=== PATIENT | female | born 1995 | race Hispanic/Latino ===

== ENCOUNTER 2018-07-16 10:23 | Emergency (ER) | payer OTHER ==
[2018-07-16 10:40] VITALS: BP 128/79
[2018-07-16] MEDS ORDERED: IBUPROFEN PO ONE (11:43)
[2018-07-16] MEDS ORDERED: CLEOCIN PO ONE (11:43)
--- NOTE | 2018-07-16 11:48 | Emergency Department Report ---
Abscess Boil HPI - HPI Chief Complaint: Skin/Abscess/Foreign Body Stated Complaint: BUTT CHEEK INFECTED Time Seen by Provider: 07/16/18 11:42 Duration: 2 Days Location: Other (buttock left) History: Yes Pain, Yes Previous History, Yes Insect Bite (unsure), No Fever, No Purulent Drainage, No Numbness, No Foreign Body Home Medications: Previous Rx's Medication Instructions Recorded Last Taken Type Clindamycin [Clindamycin CAP] 300 mg PO BID #20 capsule 07/16/18 Unknown Rx Ibuprofen [Motrin 800 MG tab] 800 mg PO TID #20 tablet 07/16/18 Unknown Rx Allergies/Adverse Reactions: Allergies Allergy/AdvReac Type Severity Reaction Status Date / Time No Known Allergies Allergy Unverified 07/16/18 10:34 ED Review of Systems ROS: Stated complaint: BUTT CHEEK INFECTED Other details as noted in HPI Comment: All other systems reviewed and negative ED Past Medical Hx - Past Medical History Previous Medical History?: No - Surgical History Past Surgical History?: Yes Additional Surgical History: Tonsils removed and plastic surgery on face from dog bite - Social History Smoking Status: Current Every Day Smoker Substance Use Type: None - Medications Home Medications: Home Medications Medication Instructions Recorded Confirmed Last Taken Type Clindamycin [Clindamycin CAP] 300 mg PO BID #20 capsule 07/16/18 Unknown Rx Ibuprofen [Motrin 800 MG tab] 800 mg PO TID #20 tablet 07/16/18 Unknown Rx ED Abscess Boil Physical Exam - Exam General: Vital signs noted. No distress. Alert and acting appropriately. Front/Back of Body, Lg (Color): 1 - 2-3 cm cellulitic area non flactullant, non tender to palpation Size: 2 cm Exam: Yes Tenderness, Yes Surrounding Cellulites/Erythema, Yes Normal Neurologic Exam, Yes Normal Circulation, No Fluctuance, No Lymphangitis, No Crepitation, No Heart Murmur ED Course Vital Signs 07/16/18 10:35 Temperature 98.3 F Pulse Rate 87 Respiratory 20 Rate Blood Pressure 128/79 O2 Sat by Pulse 98 Oximetry Critical care attestation.: If time is entered above; I have spent that time in minutes in the direct care of this critically ill patient, excluding procedure time. ED Medical Decision Making - Medical Decision Making 22 y o female presents with simple cellulitis and insect bite on the left buttock. No signs of training, abscess. Discussed warm compresses 3 times a day. Discussed antibiotic therapy and pain medication. Discussed follow-up with primary care physician. Vital signs are normal patient is in no acute distress. ED Disposition Clinical Impression: Insect bite, Cellulitis of buttock, left Disposition: [id number] TO HOME OR SELFCARE Is pt being admited?: No Does the pt Need Aspirin: No Condition: Stable Instructions: Cellulitis (ED), Abscess (ED) Additional Instructions: Make sure to follow up with the primary care physician as discussed. Take all your medications as you've been prescribed. If you have any worsening symptoms or develop new symptoms please return to ED immediately. Prescriptions: Clindamycin [Clindamycin CAP] 300 mg PO BID #20 capsule Ibuprofen [Motrin 800 MG tab] 800 mg PO TID #20 tablet Referrals: MAXIMINO GONZALEZ MD [Primary Care Provider] - 3-5 Days Forms: Work/School Release Form(ED) Time of Disposition: 12:09
== END 2018-07-16 12:21 | disposition home or self-care (01) ==
LOC: ED 10:23
DX: S31.825A Open bite of left buttock, initial encounter (principal); L03.317 Cellulitis of buttock; F17.200 Nicotine dependence, unspecified, uncomplicated; Z90.89 Acquired absence of other organs; W57.XXXA Bitten or stung by nonvenomous insect and other nonvenomous arthropods, initial encounter; Y93.89 Activity, other specified; Y92.89 Other specified places as the place of occurrence of the external cause; Y99.8 Other external cause status
CPT/HCPCS: 99282